=== PATIENT | female | born 1985 | race Hispanic/Latino ===

== ENCOUNTER 2022-08-30 12:24 | Emergency (ER) | payer OTHER ==
[~2022-08-30] VITALS: Ht 167.6 cm; Wt 81.6 kg
[2022-08-30 12:24] VITALS: BP 185/111; PULSE 99; RESP 18; TEMP 98.9; O2SAT 91
--- NOTE | 2022-08-30 12:24 | NUR ---
ARRIVAL PT ARRIVED AMBULATORY TO ED 5 WITH C/O HIGH BLOOD SUGAR, HIGH BLOOD PRESSURE, AND FEELING TIRED. PT STATES HER SUGAR WAS 400 AND TAKES METFORMIN. VITALS TAKEN AND DR NOTIFIED.
[2022-08-30 13:21] LABS: BASOPHIL # 0.1 10^3/uL (0.0-0.1); BASOPHIL % 0.7 % (0.0-0.2); EOSINOPHIL # 0.3 10^3/uL (0.0-0.2); EOSINOPHIL % 3.8 % (0.0-5.0); LYMPHOCYTES # 2.07 10^3/uL1 (1.0-4.8); LYMPHOCYTES % 28.9 % (24.0-44.0); MEAN CORP HGB 28.8 pg (26-34); MONOCYTES # 0.6 10^3/uL (0.3-0.8); MONOCYTES % 8.4 % (5.0-12.0); NEUTROPHIL # 4.2 10^3/uL (1.8-7.7); NEUTROPHILS % 58.1 % (41.0-85.0); PLATELET COUNT 435 10^3/uL (150-400); RED CELL DISTRIBUTION WIDTH 12.6 % (11.5-14.5)
[2022-08-30 13:23] LABS: BILIRUBIN,URINE NEGATIVE (NEGATIVE); UROBILINOGEN,URINE 0.2 E.U./dL (0.2)
--- NOTE | 2022-08-30 13:48 | PCM.EKG ---
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
--- NOTE | 2022-08-30 13:52 | DIREP ---
PROCEDURE:CT HEAD OR BRAIN W/O CONTRAST COMPARISON:None. INDICATIONS:Near syncope TECHNIQUE:CT images were created without intravenous contrast. FINDINGS: VENTRICLES:The ventricles are normal in size and configuration. CEREBRUM:Normal cerebral morphology with appropriate rudd white matter differentiation. CEREBELLUM:Negative. BRAINSTEM:Negative. BASAL CISTERNS:Negative. HEMORRHAGE:No MASS LESION:No ACUTE INFARCT:No SKULL:Normal. SINUSES:Normal. OTHER:None CONCLUSION:Normal examination. Dictated by: Shree Downey MD on 08/30/2022 at 01:44 PM
--- NOTE | 2022-08-30 13:57 | ER.PDOC ---
General Chief Complaint: General Complaint Stated Complaint: POSSIBLE HIGH BP TRAVEL OUT OF US: No Time seen by MD: 13:52 Source: patient Exam Limitations: no limitations History of Present Illness Initial Comments High blood pressure, generalized weakness and near syncope this afternoon. No chest pain or shortness of breath. Patient is traveling through this area to [place]. Severity: moderate Associated Symptoms: weakness Allergies: Coded Allergies: No Known Allergies (Unverified , 08/30/22) Past Medical History Medical History: diabetes Surgical History: Social History Smoking: non-smoker Alcohol Use: none Drug Use: none Review of Systems Constitutional: no symptoms reported EENTM: no symptoms reported Respiratory: no symptoms reported Cardiovascular: see HPI Gastrointestinal: no symptoms reported Psychiatric/Neurological: see HPI All Other Systems: Reviewed and Negative Physical Exam General Appearance: No Apparent Distress, WD/WN Neck: Non-Tender, Full Range of Motion, Supple, Normal Inspection Respiratory: chest non-tender, lungs clear, normal breath sounds, no respiratory distress, no accessory muscle use CVS: reg rate & rhythm, no murmur, no gallop, pulses nml, nml capillary refill Gastrointestinal: Normal Bowel Sounds, No Organomegaly, No Pulsatile Mass, Non Tender Back: Normal Inspection Extremities: Normal Range of Motion, Non-Tender, Normal Inspection 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 NML as Tested, No Motor/Sensory Deficits, Alert, Normal Mood/Affect, Oriented x 3 Skin: Normal Color Lymphatic: No Adenopathy Results/Orders Results/Orders Orders - DEVON MEEHAN MD Cbc With Auto Diff (08/30/22 13:03) Comprehensive Metabolic Panel (08/30/22 13:03) Creatine Kinase (08/30/22 13:03) Ct Head Wo Contrast (08/30/22 13:03) Urinalysis (08/30/22 13:03) EKG (08/30/22 13:03) Troponin I High Sensitivity (08/30/22 13:03) Urine Culture (08/30/22 13:16) Xr Chest 1v (08/30/22 14:01) 0.9 % Sodium Chloride (Ns 1000ml) (08/30/22 14:19) Promethazine Hcl (Phenergan) (08/30/22 14:19) Vital Signs Date Time Temp Pulse Resp B/P (MAP) Pulse Ox O2 Delivery O2 Flow Rate FiO2 7/26/23 14:20 98.9 96 18 152/81 (104) 91 Room Air* 0 21 08/30/22 12:24 98.9 99 18 185/111 (135) 91 Room Air* 0 21 08/30/22 12:24 98.9 99 18 08/30/22 12:24 98.9 99 18 91 Laboratory Tests Test 08/30/22 12:46 08/30/22 13:07 08/30/22 13:16 POC Glucose 167 (70 - 110) H Urine Collection Type RANDOM Urine Color YELLOW Urine Appearance HAZY Urine Bilirubin NEGATIVE (NEGATIVE) Urine Ketones NEGATIVE (NEGATIVE) Urine Specific [place] <=1.005 (1.005-1.030) Urine pH 5.5 (4.5-8.0) Urine Protein 1+ (NEGATIVE) H Urine Urobilinogen 0.2 E.U./dL (0.2) Urine Nitrate NEGATIVE (NEGATIVE) Urine Leukocyte Esterase NEGATIVE (NEGATIVE) Urine Glucose (Auto)(UA) 100 mg/dL (NEGATIVE) H Urine Blood 3+ (NEGATIVE) H Urine RBC 10-25 RBC/HPF (NONE SEEN) H Urine WBC 5-10 WBC/HPF (0-2) H Urine Squamous Epithelial Cells MANY (<=FEW) Urine Bacteria FEW (NONE SEEN) H White Blood Count 7.2 10^3/uL (4.5-11.0) Red Blood Count 4.76 10^6/uL (4.00-5.20) Hemoglobin 13.7 g/dL (12.0-15.0) Hematocrit 40.1 % (36.0-46.0) Mean Corpuscular Volume 84.2 fL (78-100) Mean Corpuscular Hemoglobin 28.8 pg (26-34) Mean Corpuscular Hemoglobin Concent 34.2 g/dL (33-36.5) Red Cell Distribution Width 12.6 % (11.5-14.5) Platelet Count 435 10^3/uL (150-400) H Mean Platelet Volume 9.6 fL (7.8-11.0) Neutrophils (%) (Auto) 58.1 % (41.0-85.0) Lymphocytes (%) (Auto) 28.9 % (24.0-44.0) Monocytes (%) (Auto) 8.4 % (5.0-12.0) Neutrophils # (Auto) 4.2 10^3/uL (1.8-7.7) Lymphocytes # (Auto) 2.07 10^3/uL1 (1.0-4.8) Monocytes # (Auto) 0.6 10^3/uL (0.3-0.8) Absolute Immature Granulocyte (auto 0.01 10^3 u/L (0-2) Absolute Eosinophils (auto) 0.3 10^3/uL (0.0-0.2) H Immature Granulocytes % 0.10 % (0.00-0.50) Eosinophils % 3.8 % (0.0-5.0) Basophils % 0.7 % (0.0-0.2) H Basophils # 0.1 10^3/uL (0.0-0.1) Sodium Level 137 mmol/L (132-145) Potassium Level 3.5 mmol/L (3.6-5.2) L Chloride Level 99.0 mmol/L (96-109) Carbon Dioxide Level 27.0 mmol/L (20.0-32) Anion Gap 14.5 Blood Urea Nitrogen 8 mg/dL (7-18) Creatinine 0.70 mg/dL (0.59-1.40) Estimated GFR () 113.3 (>/=60) Est GFR (CKD-EPI)(Non-Afr Slovenian) 93.6 (>/=60) BUN/Creatinine Ratio 11.0 (10.0-20.0) Glucose Level 183 mg/dL (74-106) H Calcium Level 9.5 mg/dL (8.4-10.5) Total Bilirubin 0.3 mg/dL (0.2-1.0) Aspartate Amino Transferase (AST) 64 U/L (0-35) H Alanine Aminotransferase (ALT) 84 U/L (12-78) H Alkaline Phosphatase 102 U/L (50-136) Total Creatine Kinase 62 U/L (26-192) Troponin I High Sensitivity 7 ng/L (0-50) Total Protein 8.2 g/dL (6.4-8.2) Albumin 4.0 g/dL (3.4-5.0) Globulin 4.2 Albumin/Globulin Ratio 0.[address] head: No acute intracranial abnormality CXR: Clear lungs, given low lung volumes. 2. Heart size and pulmonary vasculature are normal. Potassium 3.5, glucose 183, AST 64, ALT 84, rest of chemistry is normal. Cardiac enzymes are normal. CBC is normal. Urinalysis: WBC 5-10, few bacteria I reviewed results with the patient and she voices understanding. Blood pressure improved to 151/89. EKG/XRAY/CT/US EKG: NSR EKG Comments: HR 82, normal P axis ER DEPART Departure Time of Disposition: 13:55 Disposition: 01 HOME / SELF CARE / HOMELESS Impression: Primary Impression: Generalized weakness Additional Impressions: Near syncope Elevated blood pressure reading UTI (urinary tract infection) Condition: Improved Referrals: PCP,UNKNOWN (PCP) PRIMARY CARE PROVIDER Additional Instructions: Bactrim DS Keep a blood pressure diary Follow-up with your PCP in 2 to 3 days Return to ED if worsening symptoms or concerns Duration or Time Spent with Pa: 45 min Problem Qualifiers Additional Impressions: UTI (urinary tract infection) Urinary tract infection type: site unspecified Hematuria presence: with hematuria Qualified Codes: N39.0 - Urinary tract infection, site not specified; R31.9 - Hematuria, unspecified DEVON MEEHAN MD Aug 30, 2022 13:57
[2022-08-30] MEDS ORDERED: NS 1000ML 1,000 ML ONE (14:19)
[2022-08-30] MEDS ORDERED: PHENERGAN ONE (14:19)
[2022-08-30 14:20] VITALS: BP 152/81; PULSE 96; RESP 18; TEMP 98.9; O2SAT 91
--- NOTE | 2022-08-30 14:22 | DIREP ---
PROCEDURE:CHEST 1 VIEW COMPARISON:[facility], CT, CT HEAD BRAIN W/O CONTRAST, 08/30/2022, 01:39 PM. INDICATIONS:Hypertension FINDINGS: LUNGS/PLEURA:Shallow depth of inspiration with crowding of the central pulmonary markings. No focal consolidation, pleural effusion, or pneumothorax. VASCULATURE:Normal. Unremarkable pulmonary vasculature. CARDIAC:Heart size is normal. MEDIASTINUM:Normal. No visible mass or adenopathy. BONES:Normal. No fracture or visible bony lesion. OTHER:Negative. CONCLUSION: 1. Clear lungs, given low lung volumes. 2. Heart size and pulmonary vasculature are normal. Dictated by: Shaun Johnston MD on 08/30/2022 at 02:20 PM
== END 2022-08-30 14:50 | disposition home or self-care (01) ==
LOC: ER 12:24
DX: N39.0 Urinary tract infection, site not specified (principal); R53.1 Weakness; R55 Syncope and collapse; R03.0 Elevated blood-pressure reading, without diagnosis of hypertension; E11.9 Type 2 diabetes mellitus without complications; Z98.890 Other specified postprocedural states
CPT/HCPCS: 99285; 70450; 71045; 87086; 80053; 85025; 82948; 36415; 84484; 81001; 82550; 93005; J7030; J2550